=== PATIENT | female | born 1980 | race Caucasian/White ===

== ENCOUNTER 2017-05-14 03:16 | Emergency (ER) | payer OTHER ==
[~2017-05-14] VITALS: Ht 170.2 cm; Wt 68.9 kg
[2017-05-14 03:20] VITALS: BP 139/84; Ht 170.2 cm; Wt 68.9 kg
== END 2017-05-14 03:49 | disposition home or self-care (01) ==
LOC: ED 03:16
DX: R60.0 Localized edema (principal)